=== PATIENT | female | born 2000 | race Two or more races ===

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

== ENCOUNTER 2021-01-26 17:45 | Emergency (ER) | payer MEDICAID ==
[~2021-01-26] VITALS: Ht 167.6 cm; Wt 84.0 kg
[~2021-01-26 17:45] MED LIST changes: +ALBU18HF2 INH
[2021-01-26 18:26] LABS: CLARITY,URINE CLOUDY (Clear); COLOR,URINE YELLOW (Yellow); GLUCOSE, URINE NEGATIVE (Neg); KETONES,URINE 15 mg/dl (Neg); LEUKOCYTE ESTERASE ,URINE NEGATIVE (Neg); NITRITES, URINE NEGATIVE (Neg); OCCULT BLOOD,URINE TRACE-INTACT (Neg); PH,URINE 6.5 (4.8-8.0); PROTEIN,URINE NEGATIVE (Neg)
[2021-01-26 18:27] LABS: URINE HCG NEGATIVE (NEG)
[2021-01-26 18:29] LABS: BASOPHILS # (AUTO) 0.1 X10'3 (0-0.2); BASOPHILS % (AUTO) 0.7 % (0-1); EOSINOPHILS # (AUTO) 0.1 X10'3 (0-0.9); EOSINOPHILS % (AUTO) 0.8 % (0-6); HEMATOCRIT 44.8 % (35.0-45.0); HEMOGLOBIN 14.7 g/dl (12.0-16.0); LYMPHOCYTES # (AUTO) 2.7 X10'3 (1.1-4.8); LYMPHOCYTES % (AUTO) 23.5 % (21-51); MEAN CORPUSCULAR HEMOGLOBIN 27.2 PG (27.0-31.0); MEAN CORPUSCULAR HGB CONC 32.8 g/dL (33.0-36.5); MEAN PLATELET VOLUME 7.9 FL (7.4-10.4); MONOCYTES # (AUTO) 0.6 X10'3 (0-0.9); MONOCYTES % (AUTO) 4.9 % (2-12); NEUTROPHILS # (AUTO) 8.2 X10'3 (1.8-7.7); NEUTROPHILS % (AUTO) 70.1 % (42-75); PLATELET COUNT 299 X10'3 (140-440); RED CELL DISTRIBUTION WIDTH 14.1 % (11.5-14.5); WHITE BLOOD COUNT 11.6 X10'3 (4.5-11.0)
[2021-01-26 18:31] LABS: UA COLLECTION TYPE CLN CATCH MIDSTREAM
[2021-01-26 18:32] LABS: MUCUS STRANDS MANY /LPF (Neg); SQUAMOUS EPITHELIAL CELL,UR MANY /LPF (FEW); TRANSITIONAL EPI CELLS,URINE FEW /HPF
[2021-01-26 18:34] LABS: BACTERIA,URINE 1+ /HPF (Neg); RBC,URINE 0-2 /HPF (0-2); WBC,URINE 0-4 /HPF (0-4)
[2021-01-26 18:39] LABS: URINE AMPHETAMINE SCREEN NEGATIVE (Neg); URINE BARBITUATE SCREEN NEGATIVE (Neg); URINE BENZODIAZEPINES SCREEN NEGATIVE (Neg); URINE CANNABINOID SCREEN POSITIVE (Neg); URINE COCAINE SCREEN NEGATIVE (Neg); URINE METHADONE SCREEN NEGATIVE (Neg); URINE OPIATE SCREEN NEGATIVE (Neg); URINE PHENCYCLIDINE SCREEN NEGATIVE (Neg)
[2021-01-26 18:41] LABS: ALANINE AMINOTRANSFERASE 41 U/L (12-78); ALBUMIN 4.2 G/DL (3.4-5.0); ALBUMIN/GLOBULIN RATIO 0.9 (1.1-1.5); ALKALINE PHOSPHATASE 108 IU/L (20-180); ANION GAP 14 (8-16); ASPARTATE AMINO TRANSFERASE 24 U/L (10-37); BILIRUBIN,TOTAL 0.5 MG/DL (0.1-1.0); BLOOD UREA NITROGEN 9 MG/DL (7-18); CALCIUM 9.3 MG/DL (8.5-10.1); CHLORIDE 102 MMOL/L (99-107); CREATININE 0.75 MG/DL (0.40-0.90); GLUCOSE 87 MG/DL (70-104); SODIUM 139 MMOL/L (135-145); TOTAL CARBON DIOXIDE 23.2 MMOL/L (24-32); TOTAL PROTEIN 9.1 G/DL (6.4-8.2); eGFR > 90 ML/MIN
[2021-01-26 18:50] LABS: ETHANOL < 0.010 GM/DL (0.0-0.010)
[2021-01-26] MEDS ORDERED: LORazepam 1 MG tablet PO ONE (18:50)
--- NOTE | 2021-01-26 20:00 | NUR ---
patient ate half a burrito and some chips and 120 ml water
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
[2021-01-26] MEDS ORDERED: ibuprofen tablet 400 MG TABLET PO ONE (20:35)
--- NOTE | 2021-01-26 21:56 | NUR ---
BEDSIDE REPORT TO BEATRIZ PETERSEN
--- NOTE | 2021-01-26 21:56 | NUR ---
Bennie greenwood in [facility] - 01/26/21 at 2214 by FLAVIA BEDSIDE REPORT ROS HENDERSON RN
--- NOTE | 2021-01-26 22:14 | NUR ---
MOTHER MARY [phone] BOYFRIEND [phone] VIVIENNE BROTHER [phone] YOSI BROTHER [phone]
--- NOTE | 2021-01-27 01:00 | NUR ---
PT SLEEPING QUIETLY
[2021-01-27 05:48] VITALS: BP 124/80
--- NOTE | 2021-01-27 07:08 | NUR ---
FAXED PACKET [facility]
--- NOTE | 2021-01-27 08:02 | NUR ---
pt is sleeping, rr unlabored, no s/s of distress noted.
--- NOTE | 2021-01-27 08:02 | NUR ---
Bennie greenwood in [facility] - 01/27/21 at 0802 by CHRIS pt is sleeping, rr unlabored, no
--- NOTE | 2021-01-27 08:58 | NUR ---
pt appears depressed, withdrawn, will not make eye contact. pt is tearful and scared. process was explained to pt, [facility] no needs at this time.
--- NOTE | 2021-01-27 09:41 | NUR ---
pt is up to use the restroom, gait is steady. pt did not eat breakfast. no needs at this time
[2021-01-27] MEDS ORDERED: acetaminophen 325mg tablet PO PRN (10:10)
--- NOTE | 2021-01-27 12:01 | NUR ---
pt is being evaluated by [facility]
[2021-01-27] MEDS ORDERED: LORazepam 1 MG tablet PO ONE (12:20)
== END 2021-01-27 14:00 | disposition home or self-care (01) ==
LOC: ER 17:45
DX: R45.851 Suicidal ideations (principal); F32.9 Major depressive disorder, single episode, unspecified; F41.9 Anxiety disorder, unspecified; F12.90 Cannabis use, unspecified, uncomplicated; Z79.899 Other long term (current) drug therapy
CPT/HCPCS: 36415; 80053; 80305; 80320; 81001; 81025; 84443; 85025; 99285

== ENCOUNTER 2022-08-29 07:46 | Emergency (ER) | payer MEDICAID ==
[~2022-08-29] VITALS: Ht 167.6 cm; Wt 90.9 kg
[2022-08-29 08:58] VITALS: BP 122/76
== END 2022-08-29 08:59 | disposition home or self-care (01) ==
LOC: ER 07:47
DX: B34.9 Viral infection, unspecified (principal); F31.9 Bipolar disorder, unspecified; F12.10 Cannabis abuse, uncomplicated; Z79.899 Other long term (current) drug therapy
CPT/HCPCS: 99281

== ENCOUNTER 2022-10-20 15:51 | Emergency (ER) | payer MEDICAID ==
[~2022-10-20] VITALS: Ht 167.6 cm; Wt 94.0 kg
[2022-10-20 16:09] VITALS: BP 130/95
[2022-10-20] MEDS ORDERED: Permethrin Cream 60gm TP ONE (16:35)
== END 2022-10-20 17:03 | disposition home or self-care (01) ==
LOC: ER 15:52
DX: R21 Rash and other nonspecific skin eruption (principal); F12.90 Cannabis use, unspecified, uncomplicated
CPT/HCPCS: 99282

== ENCOUNTER 2023-03-26 10:34 | Emergency (ER) | payer MEDICAID ==
[~2023-03-26] VITALS: Ht 167.6 cm; Wt 91.2 kg
[2023-03-26 11:24] VITALS: BP 128/82
[2023-03-26 11:34] LABS: BASOPHILS # (AUTO) 0.1 X10'3 (0-0.2); EOSINOPHILS # (AUTO) 0.1 X10'3 (0-0.9); EOSINOPHILS % (AUTO) 1.5 % (0-6); HEMATOCRIT 41.3 % (35.0-45.0); HEMOGLOBIN 13.7 g/dl (12.0-16.0); LYMPHOCYTES # (AUTO) 2.3 X10'3 (1.1-4.8); MEAN CORPUSCULAR HGB CONC 33.2 g/dL (33.0-36.5); MEAN CORPUSCULAR VOLUME 81.3 FL (78-98); MEAN PLATELET VOLUME 7.6 FL (7.4-10.4); MONOCYTES # (AUTO) 0.6 X10'3 (0-0.9); MONOCYTES % (AUTO) 6.1 % (2-12); NEUTROPHILS # (AUTO) 6.1 X10'3 (1.8-7.7); NEUTROPHILS % (AUTO) 66.4 % (42-75); PLATELET COUNT 269 X10'3 (140-440); RED BLOOD COUNT 5.08 X10'6 (4.20-5.60); RED CELL DISTRIBUTION WIDTH 14.5 % (11.5-14.5); WHITE BLOOD COUNT 9.2 X10'3 (4.5-11.0)
[2023-03-26 11:39] LABS: URINE HCG POSITIVE (NEG)
[2023-03-26 11:51] LABS: ALANINE AMINOTRANSFERASE 29 U/L (12-78); ALBUMIN 3.9 G/DL (3.4-5.0); ALBUMIN/GLOBULIN RATIO 0.9 (1.1-1.5); ALKALINE PHOSPHATASE 82 IU/L (46-116); ANION GAP 14 (8-16); ASPARTATE AMINO TRANSFERASE 17 U/L (10-37); BILIRUBIN,TOTAL 0.5 MG/DL (0.1-1.0); BLOOD UREA NITROGEN 5 MG/DL (7-18); BUN/CREATININE RATIO 7.8 (10.0-20.0); CALCIUM 9.2 MG/DL (8.5-10.1); CHLORIDE 102 MMOL/L (99-107); CREATININE 0.64 MG/DL (0.40-0.90); GLUCOSE 109 MG/DL (70-104); POTASSIUM 3.8 MMOL/L (3.5-5.1); SODIUM 139 MMOL/L (135-145); TOTAL CARBON DIOXIDE 23.3 MMOL/L (24-32); TOTAL PROTEIN 8.2 G/DL (6.4-8.2); eGFR > 90 ML/MIN
[2023-03-26 12:21] LABS: LIPASE < 50 U/L (73-393)
[2023-03-26 12:22] LABS: BETA HCG,QUANTITATIVE 15795 mIU/ml
[2023-03-26 15:29] LABS: CLARITY,URINE CLOUDY (Clear); COLOR,URINE YELLOW (Yellow); GLUCOSE, URINE NEGATIVE (Neg); KETONES,URINE 15 mg/dl (Neg); LEUKOCYTE ESTERASE ,URINE NEGATIVE (Neg); NITRITES, URINE NEGATIVE (Neg); OCCULT BLOOD,URINE TRACE-INTACT (Neg); PH,URINE 8.5 (4.8-8.0); PROTEIN,URINE NEGATIVE (Neg)
[2023-03-26 15:34] LABS: UA COLLECTION TYPE CLN CATCH MIDSTREAM
[2023-03-26 15:37] LABS: MUCUS STRANDS MANY /LPF (Neg); SQUAMOUS EPITHELIAL CELL,UR MANY /LPF (FEW)
[2023-03-26 15:39] LABS: AMORPHOUS PHOSPHATES 3+; BACTERIA,URINE 2+ /HPF (Neg); RBC,URINE 0-2 /HPF (0-2); WBC,URINE 0-4 /HPF (0-4)
== END 2023-03-26 13:51 | disposition home or self-care (01) ==
LOC: ER 10:34
DX: O20.0 Threatened abortion (principal); F31.9 Bipolar disorder, unspecified; Z3A.01 Less than 8 weeks gestation of pregnancy
CPT/HCPCS: 36415; 76801; 80053; 81001; 81025; 83690; 84702; 85025; 99284

== ENCOUNTER 2024-04-04 13:05 | Emergency (ER) | payer MEDICAID, OTHER ==
[~2024-04-04] VITALS: Ht 167.6 cm; Wt 89.0 kg
[2024-04-04] MEDS: ketorolac trometh. 30mg/ml inj. IM ONE (13:57)
[2024-04-04 14:05] VITALS: BP 138/84; PULSE 88; RESP 18; TEMP 98.6; O2SAT 99
== END 2024-04-04 14:06 | disposition home or self-care (01) ==
LOC: ER 13:06
DX: M25.561 Pain in right knee (principal); F41.9 Anxiety disorder, unspecified; F32.A Depression, unspecified; F12.90 Cannabis use, unspecified, uncomplicated; Z79.899 Other long term (current) drug therapy
CPT/HCPCS: 96372; 99283; J1885

== ENCOUNTER 2024-06-12 09:48 | Emergency (ER) | payer MEDICAID ==
[~2024-06-12] VITALS: Ht 167.6 cm; Wt 96.4 kg
[2024-06-12 09:54] VITALS: TEMP 98.2
[2024-06-12] MEDS ORDERED: FAMO-129 PO (11:03)
[2024-06-12] MEDS ORDERED: DIPH25CA83 PO (11:03)
[2024-06-12] MEDS ORDERED: ONDA-243 PO (11:03)
[2024-06-12] MEDS ORDERED: PRED20TA PO (11:03)
[2024-06-12] MEDS: dexamethasone sod phosphate 10mg/ml inj IM STA (11:06)
[2024-06-12] MEDS: famotidine 20mg tablet PO ONE (11:06)
[2024-06-12] MEDS: diphenhydrAMINE 50 mg/ml inj IM ONE (11:06)
[2024-06-12 11:17] VITALS: BP 131/86; PULSE 92; RESP 16; O2SAT 99
[2024-06-12] MEDS: ondansetron 4mg rapidly disintigrating tab PO ONE (11:23)
== END 2024-06-12 11:41 | disposition home or self-care (01) ==
LOC: ER 09:49
DX: T78.49XA Other allergy, initial encounter (principal); F41.9 Anxiety disorder, unspecified; F32.A Depression, unspecified; F12.90 Cannabis use, unspecified, uncomplicated; Z79.899 Other long term (current) drug therapy; X58.XXXA Exposure to other specified factors, initial encounter
CPT/HCPCS: 96372; 99284; J1100; J1200

== ENCOUNTER 2025-09-13 00:21 | Emergency (ER) | payer MEDICAID ==
[~2025-09-13] VITALS: Ht 167.6 cm; Wt 102.7 kg
[~2025-09-13 00:21] MED LIST changes: +DIPH25CA83 PO; +FAMO-129 PO; +ONDA-243 PO
[2025-09-13 01:17] LABS: MEAN PLATELET VOLUME 7.8 FL (7.4-10.4); RED CELL DISTRIBUTION WIDTH 16.4 % (11.5-14.5)
[2025-09-13 01:22] LABS: CREATININE 0.76 MG/DL (0.40-0.90); TOTAL CARBON DIOXIDE 25.8 MMOL/L (24-32); eCRCL 106 ML/MIN; eGFR > 90 ML/MIN
--- NOTE | 2025-09-13 02:33 | Physician Documentation ---
History of Present Illness Chief Complaint: Flank Pain Stated Complaint: N/V Time Seen by MD: 02:21 Primary Medical Doctor: none Mode of Arrival: EMS HPI 25-year-old female brought to the ED by EMS for flank pain. Per patient the pain started suddenly 4 hours ago, worse in the mid back and travels around the front to the chest and the upper chest but does not descend lower than the epigastric region. The pain has been on and off. She describes the pain as tight "like sore muscles." She has had associated nausea and dizziness and vomited earlier. At one point the pain and dizziness were so intense that she was unable to walk and had to "bear crawl" up the stairs to call EMS. Denies fever, SOB, abdominal pain, any trauma to the area. She had one prior episode of similar pain last night. At that time she vomited from the pain but was able to sleep. The pain resolved by morning. Patient also endorses constipation and darker urine which she attributes to dehydration. Medication Reconciliation Allergies: Coded Allergies: No Known Allergies (Unverified , 06/12/24) Scheduled Albuterol Sulfate (Ventolin Hfa), 2 PUFFS INH Q4HPRN Diphenhydramine HCl (Benadryl), 2 CAP PO HS Famotidine (Pepcid), 1 TAB PO Q12H Scheduled PRN ONDANSETRON ODT 4mg tablet (Ondansetron Odt), 1 TAB PO Q6H PRN PRN for nausea/vomiting ONDANSETRON ODT 4mg tablet (Ondansetron Odt), 1 TAB PO Q6H PRN PRN for nausea/vomiting Miscellaneous Medications Home Med List (No Home Medications), (Reported) Past Medical History Past Medical History: Anxiety, Depression Past Surgical History: appendectomy Alcohol Use: None Drug Use: marijuana Lives with: Family Lives In: Home Occupation: student Review of Systems Constitutional: Denies: fever Gastrointestinal: Reports: nausea, vomiting Musculoskeletal: Reports: back pain Physical Exam Vital Signs: Temperature: 98.0, Heart Rate: 98, Respiratory Rate: 18, BP: 155/95, Pulse Oximetry: 100, Weight: 102.720 Oxygen Flow Rate: 0 Physical Exam General: Tired-appearing woman in no acute distress. HEENT: Atraumatic, oropharynx is moist Heart: Regular rate, normal-appearing peripheral perfusion. Lungs: Clear breath sounds bilateral, normal work of breathing, normal oxygen saturation on room air Abdomen: Soft, nondistended, tender to deep palpation in epigastric region. Back: Tender to light palpation in the mid-back. No edema, erythema, or obvious deformity. Extremities: Warm and well-perfused Neuro: Alert and oriented, no focal deficits Psychiatric: Calm and cooperative with exam Progress Results/Orders Results/Orders Orders - SANCHEZ MONTES MD Urinalysis, Cult If Indicated (09/13/25 00:58) Hcg, Ur Ql (09/13/25 00:58) Ultrasound Of Abdomen (09/13/25 ) Completed Orders - SANCHEZ MONTES MD Cbc/Diff (09/13/25 00:58) BMP (09/13/25 00:58) Lipase (09/13/25 00:58) CMP (09/13/25 00:58) Ultrasound Of Abdomen (09/13/25 ) Vital Signs 09/13/25 00:25 Temp 98.0 Pulse 98 Resp 18 B/P (MAP) 155/95 Pulse Ox 100 O2 Flow Rate 0 Laboratory Tests Test 09/13/25 00:27 White Blood Count 10.3 Red Blood Count 4.93 Hemoglobin 11.9 L Hematocrit 36.5 Mean Corpuscular Volume 73.9 L Mean Corpuscular Hemoglobin 24.1 L Mean Corpuscular Hemoglobin Concent 32.6 L Red Cell Distribution Width 16.4 H Platelet Count 311 Mean Platelet Volume 7.8 Neutrophils (%) (Auto) 52.7 Lymphocytes (%) (Auto) 38.1 Monocytes (%) (Auto) 6.0 Eosinophils (%) (Auto) 2.4 Basophils (%) (Auto) 0.8 Neutrophils # (Auto) 5.4 Lymphocytes # (Auto) 3.9 Monocytes # (Auto) 0.6 Eosinophils # (Auto) 0.2 Basophils # (Auto) 0.1 CBC Comment Sodium Level 139 Potassium Level 3.6 Chloride Level 106 Carbon Dioxide Level 25.8 Anion Gap 7 L Blood Urea Nitrogen 10 Creatinine 0.76 Estimated GFR/1.73 m2 > 90 BUN/Creatinine Ratio 13.2 Glucose Level 102 Calcium Level 8.9 Total Bilirubin 0.6 Aspartate Amino Transf (AST/SGOT) 58 H Alanine Aminotransferase (ALT/SGPT) 64 Alkaline Phosphatase 119 H Total Protein 8.2 Albumin 3.7 Globulin 4.5 H Albumin/Globulin Ratio 0.8 L Lipase 23 Chemistry Comments EKG/XRAY/CT/US/VASC/MRI Ultrasound : Impression Reviewed ultrasound report: Shows normal gallbladder and no evidence of cholecystitis Medical Decision Making Additional information obtaine: family Findings Spoke to partner Differential Dx:Considerations: Constipation, Gastritis/PUD, GI hemorrhage, Pancreatitis, Urinary tract infection, Urolithiasis Additional Comments The patient presents with back pain and associated symptoms. Here in the ED she is overall well-appearing, and does have some reproducible back muscle tenderness. She has a benign abdominal exam. Her workup was unrevealing, including normal blood testing, no urinary tract infection, and a normal right upper quadrant ultrasound. She was given Zofran for her nausea. Overall this appears consistent with either muscle spasms or development of a viral syndrome. No dangerous medical or surgical condition identified. She will be discharged home with symptomatic treatment. Departure Disposition: HOME / SELF CARE / HOMELESS Impression: Primary Impression: Back muscle spasm Additional Impression: Nausea and vomiting Condition: Improved Referrals: NO PRIMARY CARE PROVIDER (PCP) Prescriptions ONDANSETRON ODT 4mg tablet (ONDANSETRON ODT) 4 Mg Tab.rapdis 1 TAB PO Q6H PRN PRN for nausea/vomiting for 4 Days, #16 TAB 1 Refill Prov: SANCHEZ MONTES MD 09/13/25 Education Educated: Patient Educated regarding: diagnosis, treatment, need for follow up Signature Scribe Signature: sandy Attestation: SANCHEZ Childers MD Sep 13, 2025 02:33
--- NOTE | 2025-09-13 02:53 | RADIOLOGY REPORT ---
INDICATION: flank pain TECHNIQUE: Multiple real-time sonographic images were obtained of the right upper quadrant. COMPARISON: None FINDINGS: The liver demonstrates normal homogeneous echotexture without focal mass lesions. The liver measures 15.5 cm. Normal hepatopetal portal venous flow identified. No evidence of pleural effusion or abdominal ascites. There is no intrahepatic or extrahepatic ductal dilatation. The common duct measures 0.4 cm. The gallbladder is without evidence of stone or sludge. The gallbladder wall measures 0.2 cm and is within normal limits. Negative sonographic martinez's sign. The right kidney measures 11.6 cm. The right kidney is normal in contour, size, and shape. The echogenicity is normal. There is no hydronephrosis. The pancreas is not well visualized due to overlying bowel gas. IMPRESSION: 1. No sonographic evidence of cholelithiasis or acute cholecystitis.
[2025-09-13 03:15] LABS: URINE HCG NEGATIVE (NEG)
[2025-09-13 03:16] LABS: LEUKOCYTE ESTERASE ,URINE NEGATIVE (Neg); NITRITES, URINE NEGATIVE (Neg); OCCULT BLOOD,URINE NEGATIVE (Neg)
[2025-09-13 03:18] LABS: UA COLLECTION TYPE NON-SPECIFIED
[2025-09-13] MEDS: ondansetron 4mg rapidly disintigrating tab PO ONE ×2 (03:38→03:39)
[2025-09-13] MEDS ORDERED: ONDA-243 PO (03:45)
[2025-09-13 03:51] VITALS: BP 126/80; PULSE 70; RESP 18; TEMP 98.1; O2SAT 99
== END 2025-09-13 05:02 | disposition home or self-care (01) ==
LOC: ER 00:21
DX: M62.830 Muscle spasm of back (principal); R11.2 Nausea with vomiting, unspecified; R07.9 Chest pain, unspecified; F12.90 Cannabis use, unspecified, uncomplicated; Z90.49 Acquired absence of other specified parts of digestive tract
CPT/HCPCS: 36415; 76700; 80053; 81003; 81025; 83690; 85025; 99284